=== PATIENT | male | born 1980 | race Caucasian/White ===

== ENCOUNTER 2018-06-09 15:00 | Emergency (ER) | payer MEDICAID ==
[~2018-06-09] VITALS: Ht 167.6 cm; Wt 77.3 kg
[2018-06-09] MEDS ORDERED: AMOX-580 PO (16:11)
[2018-06-09 16:31] VITALS: BP 131/91
== END 2018-06-09 16:32 | disposition home or self-care (01) ==
LOC: ER 15:00
DX: K08.89 Other specified disorders of teeth and supporting structures (principal); Z79.2 Long term (current) use of antibiotics; Z87.891 Personal history of nicotine dependence
CPT/HCPCS: 64400; 99284